=== PATIENT | male | born 1955 | race Caucasian/White ===

== ENCOUNTER 2025-02-24 13:16 | Outpatient (CLI) | payer OTHER ==
--- NOTE | 2025-02-24 15:10 | RADIOLOGY REPORT ---
CLINICAL HISTORY: INJURY OF RIGHT LOWER LEG COMPARISON: None TECHNIQUE: Multisequence multiplanar MRI images of the right knee were obtained without contrast. FINDINGS: Cruciate ligaments: ACL and PCL are intact. Extensor mechanism: Quadriceps mechanism and patellar tendon are intact. Collateral ligaments: Medial and lateral collateral ligaments are intact and otherwise unremarkable. Menisci: Horizontal flap tear involving the posterior horn and body of the medial meniscus with flap component of the tear extending slightly into the adjacent inferior gutter, partially interposed betw een the medial tibial plateau and medial collateral ligament. Tear of the free edge of the posterior horn of the lateral meniscus extending near the posterior horn / body junction, appears to be oblique ly oriented. Cartilage: Chondral fraying and mild fissuring in the medial compartment. Bones: No acute fracture or focal marrow contusion. Joint fluid: Small joint effusion. Other: No other significant findings. IMPRESSION: 1. Horizontal flap tear involving the posterior horn and body of the medial meniscus. 2. Obliquely oriented tear of the posterior horn of the lateral meniscus extending near the posterior horn / body junction. 3. Additional findings as described above.
== END 2025-02-24 23:59 | disposition home or self-care (01) ==
LOC: MRI 13:16
PROVIDERS: ATTEND Family Medicine
DX: S83.241A Other tear of medial meniscus, current injury, right knee, initial encounter (principal); S83.281A Other tear of lateral meniscus, current injury, right knee, initial encounter; S89.91XA Unspecified injury of right lower leg, initial encounter; M25.461 Effusion, right knee; X58.XXXA Exposure to other specified factors, initial encounter; Y93.89 Activity, other specified; Y92.89 Other specified places as the place of occurrence of the external cause; Y99.8 Other external cause status
CPT/HCPCS: 73721